=== PATIENT | female | born 1965 | race Caucasian/White ===

== ENCOUNTER → 2016-09-26 | Outpatient (CLI) | payer OTHER ==
[~2016-09-26] MED LIST: LODINE PO; MAXZIDE 75/50 T1 TAB PO; SYMBICORT INH; WELLBUTRIN SR PO
--- NOTE | ~2016-09-26 | MY11 ---
[facility] A Service of [facility] RADIOLOGY TEXT RESULTS PATIENT: MEL DENIS LOCATION: [facility] : 61 UNIT #: [id number] AGE: [address]: Joanna Alvarado MD SEX: F ORDER DR: [id number] [facility] [address]. [place], [place] [address] [id number] O MR#: [id number] Acc #: [id number] NAME: MEL DENIS : 1965 SEX: F STUDY DATE/TIME: 09/26/2016 7:48 UNIT: [facility] ROOM: STUDY DESCRIPTION: MY Mammogram Screening Dig Josh Attending Physician: Joanna Alvarado M.D. Referring Physician: Joanna Alvarado M.D. Ordering Physician: Joanna Alvarado M.D. Primary Care Physician: Joanna Alvarado M.D. MEDICAL IMAGING REPORT This report is preliminary unless electronic signature is present EXAM Screening mammogram 09/26 INDICATIONS 50-year-old with no personal history but a positive family of breast cancer. No current complaints. FINDINGS Routine digital screening views of both breasts were obtained. Study reviewed with an FDA-approved CAD device. Comparison is made with 02/23/2015, 04/06/2012. Breast parenchyma shows scattered fibroglandular densities. No new masses or suspicious microcalcifications are seen. Benign calcifications in the upper outer left breast are stable. IMPRESSION Benign mammogram. Routine screen 1 year recommended. Patients over the age of 40 are entered into a reminder system with target due date for the next mammogram. A result letter will also be sent to the patient. BIRADS: 2 Benign finding. Dictated by... Isidro Luu Jr., M.D. THIS IS AN ELECTRONICALLY VERIFIED REPORT Isidro Luu Jr., M.D. at 09/26/2016 12:30 PM Benito TD: 09/26/2016 11:03 JOB #: [id number] [facility] A Service of [facility] RADIOLOGY TEXT RESULTS PATIENT: MEL DENIS LOCATION: [facility] : 61 UNIT #: [id number] AGE: [address]: Joanna Alvarado MD SEX: F ORDER DR: MEDICAL IMAGING REPORT COPY
== END | disposition home or self-care (01) ==
LOC: CWCC 07:31
DX: Z12.31 Encounter for screening mammogram for malignant neoplasm of breast (principal); Z80.3 Family history of malignant neoplasm of breast
CPT/HCPCS: G0202